=== PATIENT | male | born 1995 ===

== ENCOUNTER 2020-07-17 14:36 | Outpatient (CLI) | payer OTHER | END 2020-07-17 15:41 | disposition home or self-care (01) | LOC: OFIC 805 14:36 | PROVIDERS: ATTEND Otolaryngology Otology & Neurotology | DX: J02.8 Acute pharyngitis due to other specified organisms (principal); J35.1 Hypertrophy of tonsils ==

== ENCOUNTER 2020-07-31 14:45 | Outpatient (CLI) | payer OTHER | END 2020-07-31 15:42 | disposition home or self-care (01) | LOC: OFIC 805 14:45 | PROVIDERS: ATTEND Otolaryngology Otology & Neurotology | DX: J02.8 Acute pharyngitis due to other specified organisms (principal); J35.1 Hypertrophy of tonsils; G47.33 Obstructive sleep apnea (adult) (pediatric); K21.9 Gastro-esophageal reflux disease without esophagitis ==